=== PATIENT | female | born 1990 | race African-American/Black ===

== ENCOUNTER 2019-01-21 08:41 | Emergency (ER) | payer BC, MEDICAID ==
[~2019-01-21] VITALS: Ht 172.7 cm; Wt 84.0 kg
[2019-01-21] MEDS ORDERED: AM500 PO (08:49)
[2019-01-21] MEDS ORDERED: IBUP-2030 PO (08:49)
[2019-01-21] MEDS ORDERED: ACETAMINOPHEN (08:49)
[2019-01-21] MEDS ORDERED: CEFTRIAXONE SODIUM 1 G/VIAL IM ONE (09:15)
[2019-01-21] MEDS ORDERED: MORPHINE SULFATE 10 MG/ML CPJ IM ONE ×2 (09:15→09:45)
[2019-01-21 10:13] VITALS: BP 126/89
== END 2019-01-21 11:42 | disposition home or self-care (01) ==
LOC: ER 09:05
DX: K08.89 Other specified disorders of teeth and supporting structures (principal)
CPT/HCPCS: 96372; 99283; J0696; J2270

== ENCOUNTER 2019-11-02 07:45 | Emergency (ER) | payer MEDICAID ==
[~2019-11-02] VITALS: Ht 177.8 cm; Wt 85.0 kg
[~2019-11-02 07:45] MED LIST: ACETAMINOPHEN; AMOX-494 PO; IBUP-2030 PO
[2019-11-02] MEDS ORDERED: FAMOTIDINE 20MG/2ML VIAL IV STA (09:06)
[2019-11-02] MEDS ORDERED: SODIUM CHLORIDE 0.9% 1,000 ML IV ONE (09:06)
[2019-11-02] MEDS ORDERED: KETOROLAC 30MG/ML VIAL IV STA (09:06)
[2019-11-02] MEDS ORDERED: ONDANSETRON HCL 4MG/2ML INJ IV STA (09:06)
[2019-11-02 10:12] LABS: BASOPHILS % 0.7 % (0.0-2.0); EOSINOPHILS % 0.2 % (0.0-5.0); HEMATOCRIT. 38.3 % (36.0-48.0); HEMOGLOBIN. 13.1 g/dL (12.0-16.0); MEAN CORPUSCULAR HEMOGLOBIN 32.5 pg (28.0-32.0); MEAN CORPUSCULAR VOLUME 94.8 fL (81.0-99.0); MEAN PLATELET VOLUME 8.7 fl (7.4-10.4); NEUTROPHILS % 78.1 % (40.0-76.0); PLATELET 387 x1000/uL (130-400); RED BLOOD CELL COUNT 4.04 mill/uL (4.2-5.4); RED CELL DISTRIBUTION WIDTH 13.7 % (11.6-14.6)
[2019-11-02 10:13] LABS: CLARITY URINE CLOUDY (CLEAR); COLOR URINE DARK YELLOW (YELLOW); KETONES URINE NEGATIVE (NEGATIVE); LEUKOCYTE ESTERASE URINE TRACE (NEGATIVE); NITRITE URINE NEGATIVE (NEGATIVE); OCCULT BLOOD URINE NEGATIVE (NEGATIVE); PH URINE >=9.0 (4.5-8.0); PROTEIN URINE 1+ (NEGATIVE); SPECIFIC GRAVITY URINE 1.025 (1.005-1.030)
[2019-11-02 10:18] LABS: CHLORIDE 109 mEq/L (98-107); PROTHROMBIN TIME 10.7 sec (9.6-11.0)
[2019-11-02 10:22] LABS: ETHANOL BLOOD < 10 mg/dL
[2019-11-02 10:30] LABS: HCG SCREEN NEGATIVE
[2019-11-02 10:54] LABS: *AMPHETAMINES SCREEN URINE NEGATIVE (NEGATIVE); *BARBITURATES SCREEN URINE NEGATIVE (NEGATIVE); *BENZODIAZEPINES SCREEN URINE NEGATIVE (NEGATIVE); *COCAINE SCREEN URINE NEGATIVE (NEGATIVE)
[2019-11-02 10:55] LABS: METHADONE URINE SCREEN NEGATIVE (NEGATIVE); OPIATES URINE SCREEN NEGATIVE (NEGATIVE); PHENCYCLIDINE URINE SCREEN NEGATIVE (NEGATIVE)
[2019-11-02 11:04] LABS: CANNABINOID URINE SCREEN PRESUMTIVE POSITIVE (NEGATIVE)
[2019-11-02 12:34] VITALS: BP 120/90
== END 2019-11-02 13:00 | disposition home or self-care (01) ==
LOC: ER 07:45
DX: R10.31 Right lower quadrant pain (principal); R11.2 Nausea with vomiting, unspecified
CPT/HCPCS: 36415; 76705; 80053; 80305; 80320; 81003; 81025; 83690; 84703; 85025; 85610; 96374; 96375; 99284; J1885; J2405; J3490; J7030; G0480

== ENCOUNTER 2020-05-20 08:20 | Emergency (ER) | payer MEDICAID ==
[~2020-05-20] VITALS: Ht 180.3 cm; Wt 88.0 kg
[2020-05-20] MEDS ORDERED: ONDANSETRON HCL 4MG/2ML INJ IV ONE (09:00)
[2020-05-20] MEDS ORDERED: KETOROLAC 30MG/ML VIAL IV ONE (09:00)
[2020-05-20] MEDS ORDERED: MORPHINE SULFATE 4 MG/ML CPJ (NOT FOR IM USE) IV ONE ×2 (09:00→09:15)
[2020-05-20 11:39] VITALS: BP 133/90
== END 2020-05-20 11:59 | disposition home or self-care (01) ==
LOC: ER 08:20
DX: M25.562 Pain in left knee (principal); M25.572 Pain in left ankle and joints of left foot; M79.652 Pain in left thigh; M79.662 Pain in left lower leg; G89.11 Acute pain due to trauma; R03.0 Elevated blood-pressure reading, without diagnosis of hypertension; F12.90 Cannabis use, unspecified, uncomplicated
CPT/HCPCS: 73552; 73560; 73590; 73600; 81025; 93005; 96374; 96375; 99284; J1885; J2270; J2405

== ENCOUNTER 2020-06-05 07:16 | Emergency (ER) | payer MEDICAID ==
[~2020-06-05] VITALS: Ht 177.8 cm; Wt 70.0 kg
[2020-06-05 08:38] LABS: CLARITY URINE CLEAR (CLEAR); COLOR URINE DARK YELLOW (YELLOW); KETONES URINE NEGATIVE (NEGATIVE); LEUKOCYTE ESTERASE URINE TRACE (NEGATIVE); NITRITE URINE NEGATIVE (NEGATIVE); OCCULT BLOOD URINE NEGATIVE (NEGATIVE); PH URINE 8.5 (4.5-8.0); PROTEIN URINE 1+ (NEGATIVE)
[2020-06-05] MEDS ORDERED: SODIUM CHLORIDE 0.9% 1,000 ML IV ONE (09:16)
[2020-06-05 09:27] LABS: BASOPHILS % 0.7 % (0.0-2.0); EOSINOPHILS % 0.3 % (0.0-5.0); HEMATOCRIT. 40.6 % (36.0-48.0); LYMPHOCYTES % 14.8 % (20.0-50.0); MEAN CORPUSCULAR HEMOGLOBIN 32.5 pg (28.0-32.0); MEAN CORPUSCULAR VOLUME 94.5 fL (81.0-99.0); MEAN PLATELET VOLUME 8.7 fl (7.4-10.4); MONOCYTES % 6.4 % (2.0-8.0); NEUTROPHILS % 77.8 % (40.0-76.0); PLATELET 448 x1000/uL (130-400); RED BLOOD CELL COUNT 4.29 mill/uL (4.2-5.4)
[2020-06-05 09:41] VITALS: BP 111/73
[2020-06-05 10:16] LABS: HCG SCREEN NEGATIVE
[2020-06-05 10:49] LABS: CHLORIDE 106 mEq/L (98-107)
[2020-06-05 10:52] LABS: ETHANOL BLOOD < 10 mg/dL
[2020-06-05 11:05] LABS: *AMPHETAMINES SCREEN URINE NEGATIVE (NEGATIVE); *BARBITURATES SCREEN URINE NEGATIVE (NEGATIVE); *BENZODIAZEPINES SCREEN URINE NEGATIVE (NEGATIVE)
[2020-06-05 11:06] LABS: *COCAINE SCREEN URINE NEGATIVE (NEGATIVE); METHADONE URINE SCREEN NEGATIVE (NEGATIVE); OPIATES URINE SCREEN NEGATIVE (NEGATIVE); PHENCYCLIDINE URINE SCREEN NEGATIVE (NEGATIVE)
[2020-06-05 11:07] LABS: CANNABINOID URINE SCREEN PRESUMTIVE POSITIVE (NEGATIVE)
== END 2020-06-05 11:58 | disposition home or self-care (01) ==
LOC: ER 07:16
DX: R07.89 Other chest pain (principal); F41.9 Anxiety disorder, unspecified; F12.10 Cannabis abuse, uncomplicated; Z79.899 Other long term (current) drug therapy
CPT/HCPCS: 36415; 71045; 80053; 80305; 80320; 81003; 81025; 84484; 84703; 85025; 93005; 96360; 99285; G0480

== ENCOUNTER 2022-05-04 07:59 | Emergency (ER) | payer MEDICAID ==
[~2022-05-04] VITALS: Ht 180.3 cm; Wt 89.0 kg
[2022-05-04 08:05] VITALS: BP 145/96
[2022-05-04] MEDS ORDERED: AMOX-494 MT (08:44)
[2022-05-04] MEDS ORDERED: IBUP-2028 MT (08:44)
[2022-05-04] MEDS ORDERED: IBUPROFEN 600MG TABLET PO ONE (08:45)
== END 2022-05-04 08:59 | disposition home or self-care (01) ==
LOC: ER 07:59
DX: K08.89 Other specified disorders of teeth and supporting structures (principal); R03.0 Elevated blood-pressure reading, without diagnosis of hypertension
CPT/HCPCS: 81025; 99282